=== PATIENT | female | born 1955 | race African-American/Black ===

== ENCOUNTER 2023-10-23 14:59 | Inpatient (IN) | payer OTHER, MEDICAID ==
[~2023-10-23] VITALS: Ht 167.6 cm; Wt 41.7 kg
[2023-10-23] MEDS ORDERED: FAMO-90 PO (20:54)
[2023-10-23] MEDS ORDERED: IBUP-2213 PO (20:54)
[2023-10-23] MEDS ORDERED: METF-346 PO (20:54)
[2023-10-23] MEDS ORDERED: XAR10 PO (20:54)
[2023-10-23] MEDS ORDERED: ATOR10TA PO (20:54)
[2023-10-23] MEDS ORDERED: TOP100 PO ×2 (20:54)
[2023-10-23] MEDS ORDERED: DONE10TA10 PO (20:54)
[2023-10-23] MEDS ORDERED: ATEN25TA7 PO (20:54)
[2023-10-23] MEDS ORDERED: VALP-22 GT/PO (20:54)
[2023-10-23] MEDS ORDERED: POTASSIUM CHLORIDE 10 MEQ TABER PO PRN (21:00)
[2023-10-23] MEDS ORDERED: HYDROcodone/APAP 5/325 MG 1 TAB TAB PO PRN (21:00)
[2023-10-23] MEDS ORDERED: MORPHINE SULFATE 2 MG/ML SYR IVP PRN (21:00)
[2023-10-23] MEDS ORDERED: MAGNESIUM OXIDE 400 MG TAB PO PRN (21:00)
[2023-10-23] MEDS ORDERED: ONDANSETRON 4 MG/2 ML VIAL IVP PRN (21:00)
[2023-10-23] MEDS ORDERED: MAG SULF 2000 MG/WATER PREMIX 50 ML IV PRN (21:00)
[2023-10-23] MEDS ORDERED: KCL 20 MEQ IN 100 mL PREMIX 200 ML IV PRN (21:00)
[2023-10-23] MEDS ORDERED: ACETAMINOPHEN 325 MG TAB PO PRN (21:00)
[2023-10-23] MEDS: DONEPEZIL 10 MG TAB PO ONE (22:17)
[2023-10-24] VITALS (8 sets, daily range): BP systolic 83–129; BP diastolic 50–78; PULSE 45–71; RESP 18–19; TEMP 97–98.9; O2SAT 99–100
[2023-10-24 01:38] LABS: APPEARANCE,URINE CLEAR (CLEAR); BILIRUBIN,URINE NEGATIVE (NEGATIVE); BLOOD, URINE 1+ (NEGATIVE); COLOR,URINE YELLOW (YELLOW); LEUKOCYTE ESTERASE ,URINE TRACE (NEGATIVE); NITRITE, URINE NEGATIVE (NEGATIVE); PROTEIN,URINE NEGATIVE (NEGATIVE); UGLUCOSE NEGATIVE (NEGATIVE); UROBILINOGEN,URINE 0.2 EU/dL (0.2 - 1)
[2023-10-24 01:40] LABS: RBC,URINE 0-5 /HPF (0-5); WBC,URINE 0-5 /HPF (0-5)
[2023-10-24 01:41] LABS: BACTERIA,URINE 1+ /HPF (None Seen); MUCUS,URINE None Seen /LPF (None Seen); SQUAMOUS EPITHELIAL CELL,UR 0-3 (FEW) /LPF (0-3 (FEW))
[2023-10-24 06:08] LABS: BASOPHILS % (AUTO) 0.4 % (0.0-2.0); EOSINOPHILS # (AUTO) 0.3 K/uL (0-0.4); EOSINOPHILS % (AUTO) 3.4 % (0.0-4.0); HEMATOCRIT 39.3 % (36-48); HEMOGLOBIN 12.9 g/dL (12.0-16.0); LYMPHOCYTES # (AUTO) 3.9 K/uL (2.5-16.5); LYMPHOCYTES % (AUTO) 51.2 % (20.5-51.1); MEAN CORPUSCULAR HEMOGLOBIN 28 pg (27-31); MEAN CORPUSCULAR HGB CONC 33 g/dL (33-37); MONOCYTES # (AUTO) 0.6 K/uL (0.8-1.0); MONOCYTES % (AUTO) 7.2 % (1.7-9.3); NEUTROPHILS # (AUTO) 2.9 K/uL (1.8-7.7); NEUTROPHILS % (AUTO) 37.8 % (42.2-75.2); PLATELET COUNT (AUTO) 262 K/uL (140-450); RED BLOOD CELL COUNT(AUTO) 4.57 MIL/uL (4.20-5.40); RED CELL DISTRIBUTION WIDTH 16.3 % (11.6-13.7); WHITE BLOOD COUNT (AUTO) 7.7 K/uL (4.8-10.8)
[2023-10-24 06:24] LABS: ALBUMIN 3.1 g/dL (3.4-5.0); ANION GAP 17.1 (8-16); CALCIUM 9.3 mg/dL (8.5-10.1); CARBON DIOXIDE 23.1 mmol/L (21-32); CREATININE 0.6 mg/dL (0.6-1.3); POTASSIUM 4.2 mmol/L (3.5-5.1); TOTAL BILIRUBIN 0.2 mg/dL (0.0-1.0); TOTAL PROTEIN, SERUM 6.8 g/dL (6.4-8.2)
[2023-10-24 06:32] LABS: MAGNESIUM 1.9 mg/dL (1.8-2.4)
[2023-10-24] MEDS: FAMOTIDINE 20 MG TAB PO SCH (08:37)
[2023-10-24] MEDS: TOPIRAMATE 100 MG TAB PO SCH (08:38)
[2023-10-24] MEDS: VALPROIC ACID 250 MG/5 ML UDC PO SCH (08:38)
[2023-10-24] MEDS: atenoloL 25 MG TAB PO SCH (08:38)
[2023-10-24] MEDS ORDERED: DEXTROSE 50% 50 ML SYR IVP PRN (10:45)
[2023-10-24] MEDS: BLOOD GLUCOSE MONITORING 1 DEV DEV FS SCH (11:41)
[2023-10-24] MEDS: INSULIN LISPRO SLIDING SCALE 100 UNITS/ML VIAL SUBQ PRN (11:47)
[2023-10-24] MEDS: DONEPEZIL 10 MG TAB PO SCH (20:41)
[2023-10-24] MEDS: ATORVASTATIN 20 MG TAB PO SCH (20:42)
[2023-10-24] MEDS ORDERED: DONEPEZIL 10 MG TAB PO SCH (21:00)
[2023-10-24] MEDS: NACL 0.9% 1,000 ML IV ONE (21:29)
[2023-10-25] VITALS (7 sets, daily range): BP systolic 92–122; BP diastolic 40–66; PULSE 51–92; RESP 17–18; TEMP 96.8–98.5; O2SAT 99–100
[2023-10-25 05:39] LABS: BASOPHILS # (AUTO) 0.1 K/uL (0.00-0.22); BASOPHILS % (AUTO) 0.9 % (0.0-2.0); EOSINOPHILS # (AUTO) 0.2 K/uL (0-0.4); EOSINOPHILS % (AUTO) 3.5 % (0.0-4.0); HEMATOCRIT 35.8 % (36-48); HEMOGLOBIN 11.8 g/dL (12.0-16.0); LYMPHOCYTES # (AUTO) 3.1 K/uL (2.5-16.5); MEAN CORPUSCULAR HEMOGLOBIN 28 pg (27-31); MEAN CORPUSCULAR HGB CONC 33 g/dL (33-37); MEAN CORPUSCULAR VOLUME 85.4 fL (80-94); MONOCYTES # (AUTO) 0.4 K/uL (0.8-1.0); MONOCYTES % (AUTO) 6.5 % (1.7-9.3); NEUTROPHILS # (AUTO) 2.1 K/uL (1.8-7.7); NEUTROPHILS % (AUTO) 36.1 % (42.2-75.2); PLATELET COUNT (AUTO) 281 K/uL (140-450); RED CELL DISTRIBUTION WIDTH 16.3 % (11.6-13.7); WHITE BLOOD COUNT (AUTO) 5.9 K/uL (4.8-10.8)
[2023-10-25 05:50] LABS: ALBUMIN 2.7 g/dL (3.4-5.0); ANION GAP 11.3 (8-16); CALCIUM 8.6 mg/dL (8.5-10.1); CARBON DIOXIDE 25.7 mmol/L (21-32); CREATININE 0.6 mg/dL (0.6-1.3); MAGNESIUM 2.1 mg/dL (1.8-2.4); TOTAL BILIRUBIN 0.2 mg/dL (0.0-1.0)
[2023-10-25] MEDS: RIVAROXABAN 10 MG TAB PO SCH (12:17)
[2023-10-25] MEDS: MIDODRINE 5 MG TAB PO PRN (21:16)
[2023-10-26] VITALS: BP 101/40; PULSE 55; PULSE 57; PULSE 84; RESP 17; TEMP 97.7; O2SAT 100
[2023-10-26 04:00] VITALS: BP 131/62; PULSE 48; PULSE 50; RESP 16; TEMP 97.3; O2SAT 100
[2023-10-26 06:28] LABS: BASOPHILS % (AUTO) 0.6 % (0.0-2.0); EOSINOPHILS # (AUTO) 0.3 K/uL (0-0.4); EOSINOPHILS % (AUTO) 4.1 % (0.0-4.0); HEMATOCRIT 36.1 % (36-48); HEMOGLOBIN 11.8 g/dL (12.0-16.0); LYMPHOCYTES # (AUTO) 2.8 K/uL (2.5-16.5); LYMPHOCYTES % (AUTO) 41.2 % (20.5-51.1); MEAN CORPUSCULAR HEMOGLOBIN 28 pg (27-31); MEAN CORPUSCULAR HGB CONC 33 g/dL (33-37); MEAN CORPUSCULAR VOLUME 86.1 fL (80-94); MONOCYTES # (AUTO) 0.6 K/uL (0.8-1.0); MONOCYTES % (AUTO) 8.5 % (1.7-9.3); NEUTROPHILS # (AUTO) 3.1 K/uL (1.8-7.7); NEUTROPHILS % (AUTO) 45.6 % (42.2-75.2); PLATELET COUNT (AUTO) 280 K/uL (140-450); RED BLOOD CELL COUNT(AUTO) 4.19 MIL/uL (4.20-5.40); RED CELL DISTRIBUTION WIDTH 16.7 % (11.6-13.7); WHITE BLOOD COUNT (AUTO) 6.8 K/uL (4.8-10.8)
[2023-10-26 07:00] LABS: ALBUMIN 2.9 g/dL (3.4-5.0); ANION GAP 10.1 (8-16); CALCIUM 8.8 mg/dL (8.5-10.1); CREATININE 0.7 mg/dL (0.6-1.3); MAGNESIUM 2.1 mg/dL (1.8-2.4); POTASSIUM 4.1 mmol/L (3.5-5.1); TOTAL BILIRUBIN 0.2 mg/dL (0.0-1.0); TOTAL PROTEIN, SERUM 6.2 g/dL (6.4-8.2)
[2023-10-26 08:00] VITALS: BP 110/63; PULSE 62; PULSE 84; PULSE 92; RESP 17; RESP 19; TEMP 96.9; O2SAT 100; O2SAT 99
[2023-10-26 11:25] VITALS: BP 110/63; PULSE 92; RESP 17; TEMP 96.9
[2023-10-26 12:00] VITALS: BP 122/77; PULSE 76; PULSE 77; RESP 18; TEMP 97.3; O2SAT 100
== END 2023-10-26 14:40 | DRG 70 ==
LOC: MTU 20:18
PROVIDERS: ADMIT Hospitalist; ATTEND Hospitalist
DX: G93.41 Metabolic encephalopathy (principal); E43 Unspecified severe protein-calorie malnutrition; N39.0 Urinary tract infection, site not specified; Z68.1 Body mass index [BMI] 19.9 or less, adult; I10 Essential (primary) hypertension; E78.5 Hyperlipidemia, unspecified; K21.9 Gastro-esophageal reflux disease without esophagitis; E11.9 Type 2 diabetes mellitus without complications; Z79.899 Other long term (current) drug therapy; Z86.718 Personal history of other venous thrombosis and embolism
CPT/HCPCS: 36415; 70450; 71045; 80053; 81001; 82140; 82948; 83735; 85025; 87081; 97163-GP; J0696; J1815; J7060; Q0092